=== PATIENT | female | born 1935 | race Two or more races ===

== ENCOUNTER 2022-05-05 15:35 | Inpatient (IN) | payer MEDICARE ==
[~2022-05-05] VITALS: Ht 152.4 cm; Wt 46.9 kg
[2022-05-05] MEDS ORDERED: IV NS 0.9% 1,000 ML BAG IV ONE (16:30)
[2022-05-05] MEDS ORDERED: VANCOMYCIN 1 GM in IV D5W 250 ML IV ONE (16:30)
[2022-05-05] MEDS ORDERED: CEFEPIME 1 GM in IV D5W 50 ML IV ONE (16:30)
[2022-05-05 17:18] LABS: BASOPHILS % (AUTO) 0.4 % (0.0-2.0); EOSINOPHILS % (AUTO) 2.6 % (0.0-6.0); HEMATOCRIT 47 % (33-45); HEMOGLOBIN 15.5 g/dL (11.5-14.8); LYMPHOCYTES # (AUTO) 1.4 K/uL (0.8-4.8); LYMPHOCYTES % (AUTO) 15.4 % (20.0-44.0); MEAN CORPUSCULAR HGB CONC 33 g/dl (31.0-36.0); MEAN CORPUSCULAR VOLUME 86 fL (82-100); MONOCYTES # (AUTO) 0.7 K/uL (0.1-1.30); MONOCYTES % (AUTO) 8.1 % (2.0-12.0); NEUTROPHILS # (AUTO) 6.6 K/uL (1.8-8.9); NEUTROPHILS % (AUTO) 73.5 % (43.0-81.0); PLATELET COUNT (AUTO) 204 K/uL (150-450); WHITE BLOOD COUNT (AUTO) 8.9 K/uL (4.3-11.0)
[2022-05-05 17:29] LABS: C-REACTIVE PROTEIN < 0.2 mg/dL (0.0-0.9)
[2022-05-05 17:32] LABS: CALCIUM, SERUM 9.5 mg/dL (8.5-10.1); CARBON DIOXIDE 28 mmol/L (21-32); CHLORIDE 102 mmol/L (98-107); CREATININE 0.7 mg/dL (0.6-1.3); GLUCOSE 91 mg/dL (74-106); POTASSIUM 4.2 mmol/L (3.5-5.1); SODIUM SERUM 137 mmol/L (136-145); UREA NITROGEN, BLOOD 15 mg/dL (7-18)
[2022-05-05 17:45] LABS: ALANINE AMINOTRANSFERASE 13 U/L (12-78); ALBUMIN 4.3 g/dL (3.4-5.0); ALKALINE PHOSPHATASE 113 U/L (46-116); ASPARTATE AMINOTRANSFERASE 28 U/L (15-37); BILIRUBIN,TOTAL 0.6 mg/dL (0.2-1.0); TOTAL PROTEIN, SERUM 8.1 g/dL (6.4-8.2)
[2022-05-05] MEDS ORDERED: IOHEXOL-350 100 ML VIAL IV ONE (18:03)
[2022-05-05] MEDS ORDERED: IV NS 0.9% 250 ML IV ONE (18:03)
[2022-05-05] MEDS ORDERED: CT SWABBABLE VALVE TRANS SET 1 EA INFUS.SET MC ONE (18:03)
[2022-05-05 23:41] VITALS: BP 194/95
[2022-05-06] MEDS ORDERED: ONDANSETRON HCL/PF 4 MG/2 ML VIAL IVP PRN
[2022-05-06] MEDS ORDERED: MAG HYDROX/AL HYDROX/SIMETH 30 ML UDC PO PRN
[2022-05-06] MEDS ORDERED: MAGNESIUM HYDROXIDE 30 ML UDC PO PRN
[2022-05-06] MEDS ORDERED: Z GUARD REMEDY 4 OZ OINT TP PRN
[2022-05-06] MEDS ORDERED: ACETAMINOPHEN 325 MG TABLET PO PRN
[2022-05-06] MEDS ORDERED: hydrALAZINE HCL 10 MG TABLET PO PRN
[2022-05-06] MEDS ORDERED: HYDROCODONE/APAP 5/325MG TABLET PO PRN
[2022-05-06] MEDS: ZOLPIDEM TARTRATE 5 MG TABLET PO PRN ×2 (00:02→21:02)
[2022-05-06] MEDS: ENOXAPARIN SODIUM 40 MG/0.4 ML DISP.SYRIN SQ SCH ×2 (00:03→21:42)
[2022-05-06] MEDS: METOPROLOL TARTRATE 25 MG TABLET PO SCH ×3 (00:57→20:48)
[2022-05-06 02:00] VITALS: BP 148/78
[2022-05-06] MEDS ORDERED: CEFEPIME 1 GM in IV D5W 50 ML IV ONE (05:00)
[2022-05-06] MEDS ORDERED: CEFEPIME 1 GM VIAL ONE (05:31)
[2022-05-06 07:59] LABS: BASOPHILS % (AUTO) 0.5 % (0.0-2.0); EOSINOPHILS % (AUTO) 4.3 % (0.0-6.0); HEMATOCRIT 42 % (33-45); HEMOGLOBIN 13.8 g/dL (11.5-14.8); LYMPHOCYTES # (AUTO) 1.3 K/uL (0.8-4.8); LYMPHOCYTES % (AUTO) 16.7 % (20.0-44.0); MEAN CORPUSCULAR HGB CONC 33 g/dl (31.0-36.0); MEAN CORPUSCULAR VOLUME 86 fL (82-100); MONOCYTES # (AUTO) 0.7 K/uL (0.1-1.30); MONOCYTES % (AUTO) 9.1 % (2.0-12.0); NEUTROPHILS # (AUTO) 5.5 K/uL (1.8-8.9); NEUTROPHILS % (AUTO) 69.4 % (43.0-81.0); PLATELET COUNT (AUTO) 192 K/uL (150-450); RED BLOOD CELL COUNT(AUTO) 4.89 MIL/uL (4.0-5.2); WHITE BLOOD COUNT (AUTO) 7.9 K/uL (4.3-11.0)
[2022-05-06 08:00] VITALS: BP 153/92
[2022-05-06 08:35] LABS: CALCIUM, SERUM 8.7 mg/dL (8.5-10.1); CREATININE 0.7 mg/dL (0.6-1.3); POTASSIUM 3.8 mmol/L (3.5-5.1)
[2022-05-06] MEDS: PANTOPRAZOLE 40 MG TABLET.DR PO SCH (08:35)
[2022-05-06] MEDS ORDERED: CLONIDINE HCL 0.1 MG TABLET PO PRN (09:00)
[2022-05-06 09:03] LABS: THYROID STIMULATING HORMONE 1.412 uIU/mL (0.358-3.74)
[2022-05-06] MEDS: NIFEdipine XL (30MG) 30 MG TAB PO SCH (10:34)
[2022-05-06] MEDS ORDERED: MENTHOL/CETYLPYRD (CEPACOL) 1 LOZ LOZENGE PO PRN (12:00)
[2022-05-06] MEDS ORDERED: VANCOMYCIN 500 MG in IV D5W 100ml IV SCH (13:00)
[2022-05-06] MEDS ORDERED: LIDOCAINE 5% OINT 35.44 GM TUBE TP PRN (14:30)
[2022-05-06 16:00] VITALS: BP 153/62
[2022-05-06] MEDS: VANCOMYCIN 500 MG in IV D5W 100ml IV SCH (17:57)
[2022-05-06] MEDS: POVIDONE-IODINE OINT 28.4 GM TUBE TP SCH (17:59)
[2022-05-06 20:00] VITALS: BP 149/62
[2022-05-06] MEDS: CEFEPIME 2 GM in IV D5W 100 ML IV SCH (20:47)
[2022-05-07] MEDS: VANCOMYCIN 500 MG in IV D5W 100ml IV SCH ×2 (05:37→18:34)
[2022-05-07] MEDS: PANTOPRAZOLE 40 MG TABLET.DR PO SCH (08:29)
[2022-05-07] MEDS: CEFEPIME 2 GM in IV D5W 100 ML IV SCH ×3 (09:00→21:21)
[2022-05-07] MEDS: METOPROLOL TARTRATE 25 MG TABLET PO SCH ×2 (09:30→21:58)
[2022-05-07] MEDS: NIFEdipine XL (30MG) 30 MG TAB PO SCH (09:31)
[2022-05-07] MEDS: DAKINS QUARTER STRENGTH (0.125%) 480 ML BOTTLE TOP SCH (09:31)
[2022-05-07] MEDS: POVIDONE-IODINE OINT 28.4 GM TUBE TP SCH ×2 (09:31→17:11)
[2022-05-07 14:45] LABS: BASOPHILS % (AUTO) 0.4 % (0.0-2.0); EOSINOPHILS % (AUTO) 2.4 % (0.0-6.0); HEMATOCRIT 43 % (33-45); HEMOGLOBIN 14.1 g/dL (11.5-14.8); LYMPHOCYTES # (AUTO) 1.3 K/uL (0.8-4.8); MEAN CORPUSCULAR HGB CONC 33 g/dl (31.0-36.0); MEAN CORPUSCULAR VOLUME 88 fL (82-100); MONOCYTES # (AUTO) 0.8 K/uL (0.1-1.30); MONOCYTES % (AUTO) 9.4 % (2.0-12.0); NEUTROPHILS # (AUTO) 6.5 K/uL (1.8-8.9); NEUTROPHILS % (AUTO) 72.8 % (43.0-81.0); PLATELET COUNT (AUTO) 185 K/uL (150-450); RED BLOOD CELL COUNT(AUTO) 4.89 MIL/uL (4.0-5.2); WHITE BLOOD COUNT (AUTO) 8.9 K/uL (4.3-11.0)
[2022-05-07 14:55] LABS: CALCIUM, SERUM 8.8 mg/dL (8.5-10.1); CREATININE 0.7 mg/dL (0.6-1.3); POTASSIUM 3.5 mmol/L (3.5-5.1)
[2022-05-07 16:00] VITALS: BP 122/57
[2022-05-07 20:00] VITALS: BP 136/76
[2022-05-07] MEDS: MUPIROCIN OINT 2% 22 GM TUBE NS SCH (21:57)
[2022-05-07] MEDS: ENOXAPARIN SODIUM 40 MG/0.4 ML DISP.SYRIN SQ SCH (22:05)
[2022-05-07] MEDS ORDERED: diphenhydrAMINE HCL 25 MG CAPSULE PO PRN (23:30)
[2022-05-08] MEDS: VANCOMYCIN 500 MG in IV D5W 100ml IV SCH (06:05)
[2022-05-08] MEDS: PANTOPRAZOLE 40 MG TABLET.DR PO SCH (07:56)
[2022-05-08] MEDS ORDERED: VANCOMYCIN 500 MG in IV D5W 100ml IV ONE (08:30)
[2022-05-08] MEDS: METOPROLOL TARTRATE 25 MG TABLET PO SCH ×2 (09:00→21:51)
[2022-05-08] MEDS: MUPIROCIN OINT 2% 22 GM TUBE NS SCH ×2 (09:26→22:03)
[2022-05-08] MEDS: NIFEdipine XL (30MG) 30 MG TAB PO SCH (09:27)
[2022-05-08] MEDS: CEFEPIME 2 GM in IV D5W 100 ML IV SCH ×2 (09:45→21:50)
[2022-05-08] MEDS: POVIDONE-IODINE OINT 28.4 GM TUBE TP SCH ×2 (09:46→16:22)
[2022-05-08] MEDS: DAKINS QUARTER STRENGTH (0.125%) 480 ML BOTTLE TOP SCH (09:46)
[2022-05-08] MEDS: ENSURE ENLIVE 237 ML LIQUID (VANILLA) PO SCH (17:10)
[2022-05-08 20:00] VITALS: BP 139/80
[2022-05-08] MEDS ORDERED: VANCOMYCIN HCL 0.75 GM in IV D5W 250 ML IV SCH (20:00)
[2022-05-08] MEDS: ENOXAPARIN SODIUM 40 MG/0.4 ML DISP.SYRIN SQ SCH (22:00)
[2022-05-08] MEDS ORDERED: IV NS 0.9% 1,000 ML IV ONE (23:59)
[2022-05-09] VITALS (10 sets, daily range): BP systolic 87–186; BP diastolic 50–141
[2022-05-09 06:45] LABS: BASOPHILS % (AUTO) 0.3 % (0.0-2.0); EOSINOPHILS % (AUTO) 2.1 % (0.0-6.0); HEMATOCRIT 40 % (33-45); HEMOGLOBIN 13.3 g/dL (11.5-14.8); LYMPHOCYTES # (AUTO) 1.7 K/uL (0.8-4.8); LYMPHOCYTES % (AUTO) 18.6 % (20.0-44.0); MEAN CORPUSCULAR HGB CONC 33 g/dl (31.0-36.0); MEAN CORPUSCULAR VOLUME 86 fL (82-100); MONOCYTES # (AUTO) 0.9 K/uL (0.1-1.30); MONOCYTES % (AUTO) 9.5 % (2.0-12.0); NEUTROPHILS # (AUTO) 6.5 K/uL (1.8-8.9); NEUTROPHILS % (AUTO) 69.5 % (43.0-81.0); PLATELET COUNT (AUTO) 187 K/uL (150-450); RED BLOOD CELL COUNT(AUTO) 4.69 MIL/uL (4.0-5.2); WHITE BLOOD COUNT (AUTO) 9.4 K/uL (4.3-11.0)
[2022-05-09] MEDS: PANTOPRAZOLE 40 MG TABLET.DR PO SCH (07:30)
[2022-05-09 07:33] LABS: CALCIUM, SERUM 8.2 mg/dL (8.5-10.1); CREATININE 0.6 mg/dL (0.6-1.3); POTASSIUM 3.1 mmol/L (3.5-5.1)
[2022-05-09] MEDS: ENSURE ENLIVE 237 ML LIQUID (VANILLA) PO SCH ×3 (08:00→17:10)
[2022-05-09] MEDS: VANCOMYCIN HCL 0.75 GM in IV D5W 250 ML IV SCH (08:00)
[2022-05-09] MEDS ORDERED: IV NS 0.9% 1,000 ML ONE (08:05)
[2022-05-09] MEDS ORDERED: LIDOCAINE 1% INJ 50 ML MDV IJ ONE (08:06)
[2022-05-09] MEDS ORDERED: IV SET PRIMARY PUMP SET 1 EA INFUS.SET MC ONE (08:06)
[2022-05-09] MEDS ORDERED: IODIXANOL 150 ML IV ONE (08:06)
[2022-05-09] MEDS ORDERED: MIDAZOLAM HCL 2 MG/2ML VIAL ONE (08:53)
[2022-05-09] MEDS ORDERED: FENTANYL PF 100MCG/2ML AMPUL ONE (08:53)
[2022-05-09] MEDS: POVIDONE-IODINE OINT 28.4 GM TUBE TP SCH ×2 (09:00→16:28)
[2022-05-09] MEDS: METOPROLOL TARTRATE 25 MG TABLET PO SCH ×2 (09:00→20:33)
[2022-05-09] MEDS: NIFEdipine XL (30MG) 30 MG TAB PO SCH (09:00)
[2022-05-09] MEDS: CEFEPIME 2 GM in IV D5W 100 ML IV SCH ×2 (09:00→20:29)
[2022-05-09] MEDS: MUPIROCIN OINT 2% 22 GM TUBE NS SCH ×2 (09:00→20:35)
[2022-05-09] MEDS: DAKINS QUARTER STRENGTH (0.125%) 480 ML BOTTLE TOP SCH (09:00)
[2022-05-09] MEDS ORDERED: HEPARIN SODIUM, PORCINE 1,000 UNIT/ML VIAL ONE (09:21)
[2022-05-09] MEDS ORDERED: SECONDARY IV SET 1 EA INFUS.SET MC ONE (09:29)
[2022-05-09] MEDS ORDERED: ANCEF 1 GM/50 ML D5W IV ONE ×2 (09:30)
[2022-05-09] MEDS ORDERED: IODIXANOL 320MG/ML 50 ML IV ONE (09:31)
[2022-05-09] MEDS: POTASSIUM CL. PREMIX PERIPHER. 50 ML IV SCH ×4 (10:54→14:59)
[2022-05-09] MEDS ORDERED: hydrALAZINE HCL IV 20 MG VIAL IV PRN (12:30)
[2022-05-09] MEDS: ZOLPIDEM TARTRATE 5 MG TABLET PO PRN (20:33)
[2022-05-09] MEDS: ENOXAPARIN SODIUM 40 MG/0.4 ML DISP.SYRIN SQ SCH (21:20)
[2022-05-10 08:00] VITALS: BP 143/65
[2022-05-10] MEDS: PANTOPRAZOLE 40 MG TABLET.DR PO SCH (08:07)
[2022-05-10] MEDS: ENSURE ENLIVE 237 ML LIQUID (VANILLA) PO SCH ×3 (08:07→17:05)
[2022-05-10 08:34] LABS: CREATININE 0.7 mg/dL (0.6-1.3)
[2022-05-10] MEDS: VANCOMYCIN HCL 0.75 GM in IV D5W 250 ML IV SCH (08:44)
[2022-05-10] MEDS: NIFEdipine XL (30MG) 30 MG TAB PO SCH (09:08)
[2022-05-10] MEDS: METOPROLOL TARTRATE 25 MG TABLET PO SCH ×2 (09:09→20:35)
[2022-05-10] MEDS: POVIDONE-IODINE OINT 28.4 GM TUBE TP SCH ×2 (09:10→17:05)
[2022-05-10] MEDS: MUPIROCIN OINT 2% 22 GM TUBE NS SCH ×2 (09:10→21:22)
[2022-05-10] MEDS: DAKINS QUARTER STRENGTH (0.125%) 480 ML BOTTLE TOP SCH (09:10)
[2022-05-10] MEDS: CEFEPIME 2 GM in IV D5W 100 ML IV SCH ×2 (10:54→20:33)
[2022-05-10 16:00] VITALS: BP 122/65
[2022-05-10 20:00] VITALS: BP 150/77
[2022-05-10] MEDS: ENOXAPARIN SODIUM 40 MG/0.4 ML DISP.SYRIN SQ SCH (21:24)
[2022-05-10] MEDS: ZOLPIDEM TARTRATE 5 MG TABLET PO PRN (21:46)
[2022-05-11 06:42] LABS: BASOPHILS # (AUTO) 0.1 K/uL (0.0-0.2); BASOPHILS % (AUTO) 0.5 % (0.0-2.0); EOSINOPHILS % (AUTO) 3.6 % (0.0-6.0); HEMATOCRIT 40 % (33-45); HEMOGLOBIN 13.3 g/dL (11.5-14.8); LYMPHOCYTES # (AUTO) 1.9 K/uL (0.8-4.8); LYMPHOCYTES % (AUTO) 17.5 % (20.0-44.0); MEAN CORPUSCULAR HGB CONC 34 g/dl (31.0-36.0); MEAN CORPUSCULAR VOLUME 86 fL (82-100); MONOCYTES # (AUTO) 1.2 K/uL (0.1-1.30); MONOCYTES % (AUTO) 11.1 % (2.0-12.0); NEUTROPHILS # (AUTO) 7.2 K/uL (1.8-8.9); NEUTROPHILS % (AUTO) 67.3 % (43.0-81.0); PLATELET COUNT (AUTO) 188 K/uL (150-450); WHITE BLOOD COUNT (AUTO) 10.7 K/uL (4.3-11.0)
[2022-05-11 06:53] LABS: CALCIUM, SERUM 8.9 mg/dL (8.5-10.1); CREATININE 0.7 mg/dL (0.6-1.3); MAGNESIUM 2.2 mg/dL (1.8-2.4)
[2022-05-11 07:00] VITALS: BP 149/76
[2022-05-11] MEDS ORDERED: ASPI-1169 PO (08:03)
[2022-05-11] MEDS ORDERED: METO25TA20 PO (08:03)
[2022-05-11] MEDS ORDERED: NIFE-35 PO (08:03)
[2022-05-11] MEDS: METOPROLOL TARTRATE 25 MG TABLET PO SCH (09:00)
[2022-05-11] MEDS: DAKINS QUARTER STRENGTH (0.125%) 480 ML BOTTLE TOP SCH (09:00)
[2022-05-11 10:10] VITALS: BP 149/76
[2022-05-11] MEDS: PANTOPRAZOLE 40 MG TABLET.DR PO SCH (10:10)
[2022-05-11] MEDS: NIFEdipine XL (30MG) 30 MG TAB PO SCH (10:10)
[2022-05-11] MEDS: ENSURE ENLIVE 237 ML LIQUID (VANILLA) PO SCH ×3 (10:11→17:18)
[2022-05-11] MEDS: POVIDONE-IODINE OINT 28.4 GM TUBE TP SCH ×2 (10:12→17:17)
[2022-05-11] MEDS: CEFEPIME 2 GM in IV D5W 100 ML IV SCH (10:12)
[2022-05-11] MEDS: MUPIROCIN OINT 2% 22 GM TUBE NS SCH (10:13)
[2022-05-11] MEDS ORDERED: VANCOMYCIN 1 GM in IV D5W 250ml IV SCH (11:00)
== END 2022-05-11 18:30 | DRG 253 ==
LOC: ER 15:42 → MED 22:18 → ICU 05-09 10:13 → TELE 05-09 18:26 → MED 05-09 22:56
PROVIDERS: ADMIT Student in an Organized Health Care Education/Training Program; ATTEND Internal Medicine
PROC: 05H933Z Insertion of Infusion Device into Right Brachial Vein, Percutaneous Approach (ICD-10-PCS; 2022-05-07)
PROC: 047N3ZZ Dilation of Left Popliteal Artery, Percutaneous Approach (ICD-10-PCS; principal; 2022-05-09)
PROC: 047L3ZZ Dilation of Left Femoral Artery, Percutaneous Approach (ICD-10-PCS; 2022-05-09)
PROC: B41DYZZ Fluoroscopy of Aorta and Bilateral Lower Extremity Arteries using Other Contrast (ICD-10-PCS; 2022-05-09)
DX: I70.248 Atherosclerosis of native arteries of left leg with ulceration of other part of lower leg (principal); I96 Gangrene, not elsewhere classified; L03.116 Cellulitis of left lower limb; L97.929 Non-pressure chronic ulcer of unspecified part of left lower leg with unspecified severity; I16.0 Hypertensive urgency; Z91.14 Patient's other noncompliance with medication regimen; Z20.822 Contact with and (suspected) exposure to COVID-19; I10 Essential (primary) hypertension; I77.1 Stricture of artery; Z91.199 Patient's noncompliance with other medical treatment and regimen due to unspecified reason; F29 Unspecified psychosis not due to a substance or known physiological condition; F01.50 Vascular dementia, unspecified severity, without behavioral disturbance, psychotic disturbance, mood disturbance, and anxiety; Z79.899 Other long term (current) drug therapy
CPT/HCPCS: 36246; 36415; 37232; 70450-TC; 75625; 75635-TC; 80048-TC; 80053-TC; 80061-TC; 80202-TC; 82607-TC; 83605-TC; 83735-TC; 84100-TC; 84443-TC; 85025-TC; 85610-TC; 85652-TC; 85730-TC; 86140-TC; 86850-TC; 87040-TC; 87081-TC; 93307-TC; 97112-TC; 97116-TC; 97530-TC; C1725; C1769; C1887; C1894; C9803; G0378; G0500; J0360; J0690; J0692; J1644; J1650; J2250; J3010; J3370; J3480; J3490; J7030; J7040; J7050; J7060; Q9967